=== PATIENT | male | born 1950 | race Caucasian/White ===

== ENCOUNTER → 2024-03-12 15:22 | Outpatient (REF) | payer BC, SELFPAY | LOC: UCDH 15:22 | PROVIDERS: ATTENDING PHYSICIAN Physician Assistant Medical | DX: R05.9 Cough, unspecified (principal) | CPT/HCPCS: 71046 ==

== ENCOUNTER 2024-10-05 16:12 | Emergency (ER) | payer BC, SELFPAY ==
[2024-10-05 16:24] VITALS: BP 137/77
--- NOTE | 2024-10-05 18:46 | ED.GENMED ---
History of Present Illness
General
Chief Complaint: Skin Surface Trauma
Source: patient
Exam Limitations: none
Time Seen by Provider: 10/05/24 17:28
Nursing documentation reviewed up to this point in time: agreed with
History of Present Illness
History of Present Illness:
73-year-old male presenting to the emergency department today with concerns of a small avulsion injury to the right index finger that occurred from 2 x 3 prior to arrival. Denies additional injuries otherwise.
Past History
Past History
ED Past Medical History: Other (Cervical disc herniation)
ED Past Surgical History: Orthopedic and Other (Cervical epidural injections, tendon repair left lower extremity)
Social History
Tobacco: Non-smoker
Alcohol: Occasional (Approximately one beer near daily)
Drug: None
Personal:
Living: with family
Review of Systems
Review of Systems
Allergies reviewed?: Yes
All Other Systems: ROS reviewed and negative except as documented in HPI and ROS
Phy Exam
Physical Exam
Physical Exam:
GENERAL: Alert , in no apparent distress
EYE: pupils equal and reactive
NECK: Supple, no significant adenopathy.
ENT: o/p clr, mmm.
CARDIAC: Regular rate and rhythm .
LUNGS: Clear breath sounds bilaterally, no acute respiratory distress, no wheezes/rales/rhonchi
ABDOMEN: Soft, without focal tenderness, no r/g, no cvat
NEUROLOGICAL: Alert and oriented, no focal neuro deficits
SKIN: Distal fingertip skin avulsion to the right index finger no nailbed no joint involvement. Warm and dry, skin intact.
MUSCULOSKELETAL: No edema, well perfused.
PSYCH: Normal and appropriate interaction.
Course
Vital Signs
Initial and Last Documented VS:
Initial Vital Signs
Temp Pulse Resp BP Pulse Ox
98.1 F 54 16 137/77 99
10/05/24 16:24 10/05/24 16:24 10/05/24 16:24 10/05/24 16:24 10/05/24 16:24
Last Documented Vital Signs
Temp Pulse Resp BP Pulse Ox
98.1 F 54 16 137/77 99
10/05/24 16:24 10/05/24 16:24 10/05/24 16:24 10/05/24 16:24 10/05/24 16:24
Procedures
Laceration Closure
Right Second Finger:
Status of Wound: clean
Size of Wound in cm: 1
Description of Wound Edges: other (Skin avulsion distal)
Preparation: cleaned with saline
Revision/Debridement: routine- no revision
Wound exploration: explored to base- no FB
Type of Closure: Dermabond-skin glue
MDM/Problems Addressed
MDM/Problems Addressed:
73-year-old male presenting to the emergency department today with concerns of a distal skin avulsion to the right index finger. No nailbed involvement no foreign body seen this was cleaned thoroughly Dermabond was placed to control bleeding
otherwise stable for discharge. Return precautions given.
*Critical Care Note
Total Time (30-74mins, 75-104mins- exclusive of procedures): Not Applicable
ED Attending Note
-
Portions of this chart may have been created with voice recognition software.� Occasional wrong word or��sound alike� substitutions may have occurred due to the inherent limitations of voice recognition software.
Discharge Plan
Departure
Patient Disposition: Home (Routine Discharge)
Date of Disposition: 10/05/24
Time of Disposition: 18:46
Patient with high blood pressure during this ER visit?: No
Condition: Good
Covid-19: Not Applicable
Discharge Problem:
Avulsion of finger tip
Instructions: Laceration Repair With Glue (DC)
Prescriptions:
No Action
alprazolam 1 MG tablet
0.25 mg PO HS
amoxicillin-pot clavulanate 1 TABLET tablet
1 tab PO Q12 Qty: 10 0RF
guaifenesin [Mucus Relief ER] 600 MG tablet extended release 12hr
600 mg PO Q12 Qty: 60 0RF
fluoxetine 10 MG capsule
10 mg PO DAILY Qty: 30 0RF
Referrals:
NONE,* [Family Provider] -
Activity Restrictions/Additional Instructions:
You came to the emergency department today with concerns of fingertip avulsion. This was cleaned and closed with Dermabond. Please follow-up with the primary care doctor in the next week or so for reassessment. Return for any worsening, new or
concerning symptoms.
Interventions
Interventions:
*Risk Screen - Suicide Last Done: 10/05/24 17:02
*General Assessment Last Done: 10/05/24 17:02
*Neglect/Abuse Screening Last Done: 10/05/24 17:02
*ED COVID-19 Vaccine History Last Done: 10/05/24 17:02
*Nursing Disposition Last Done: 10/05/24 18:52
ED-Skin Assessment Last Done: 10/05/24 17:02
Discharge Date and Time
Discharge Date/Time: 10/05/24 18:53
Print Language: BURMESE
== END 2024-10-05 18:53 | disposition home or self-care (01) ==
LOC: EMR 16:12
PROVIDERS: EMERGENCY PHYSICIAN Emergency Medicine
DX: S61.210A Laceration without foreign body of right index finger without damage to nail, initial encounter (principal); W45.8XXA Other foreign body or object entering through skin, initial encounter
CPT/HCPCS: 99282

== ENCOUNTER → 2024-11-05 14:32 | Outpatient (REF) | payer SELFPAY | LOC: HWRAD 14:32 | PROVIDERS: ATTENDING PHYSICIAN Internal Medicine Endocrinology, Diabetes & Metabolism; REFERRING PHYSICIAN Internal Medicine Cardiovascular Disease | DX: E78.5 Hyperlipidemia, unspecified (principal) | CPT/HCPCS: 75571 ==